=== PATIENT | female | born 1985 | race Caucasian/White ===

== ENCOUNTER 2017-09-05 16:29 | Emergency (ER) | payer OTHER ==
--- NOTE | 2017-09-05 17:38 | ERNOTE ---
ER Female HPI Date of Service: 09/05/17 Stated Complaint: 7-8 WEEKS . BLEEDING Presenting Symptoms: vaginal bleeding Time Seen by Provider: 09/05/17 16:53 Source: patient Exam Limitations: no limitations Immunizations: IMMUNIZATION HX Immunizations Up to Date Yes History of Influenza Vaccine Yes Hx Pneumococcal Vaccination Yes Allergies/Adverse Reactions: Allergies No Known Allergies Allergy (Verified 09/05/17 16:51) Home Medications: HOME MEDICATIONS Metoprolol Tartrate 50 mg PO DAILY 09/05/17 [Last Taken Unknown] - History of Present Illness Narrative: Pt. comes in with c/o vaginal bleeding since 1000 this morning. Pt. states that she should have gotten her period a week ago and had her last period on July 29 and states that it was light for her. Pt. denies any abd pain, NVD , fever, recent illness or injury. Pt. does not know what her blood type is and states that Dr Puckett told her that she would see her once but that she would need a perinatologist due to a hx of multiple pregnancies, abortions, and community worker sx. Pt. denies any alleviating or aggravating factors or prehospital treatment. Review of Systems - Review of Systems Constitutional: Present: no symptoms reported. Absent: recent illness, fever, chills, weakness, fatigue, malaise EYE: Present: no symptoms reported ENT: Present: no symptoms reported Respiratory: Present: no symptoms reported. Absent: shortness of breath, cough , wheezing Cardiology: Present: no symptoms reported. Absent: chest pain, palpitations, edema Gastrointestinal/Abdominal: Present: no symptoms reported. Absent: nausea, vomiting, diarrhea, abdominal pain Genitourinary: Present: other - vaginal bleeding Musculoskeletal: Present: no symptoms reported. Absent: back pain, joint pain Skin: Present: no symptoms reported. Absent: rash, dryness, lesions, change in color Neurological: Present: no symptoms reported. Absent: headache, dizziness/light- headedness, weakness, numbness, tingling Endocrine: Present: no symptoms reported Hematologic/Lymphatic: Present: no symptoms reported All Other Systems: All systems neg except as marked - Patient's Past Medical History Patient History - Medical: Anxiety, Bipolar, Chronic Pain, Depression Patient History - Cardiac/Respiratory: Hypertension Patient History - Cancer: No Hx of Cancer Patient History - Surgical Procedures: Other Patient History - Other: None LMP (females 10-50): - Social History Living Situations: home Psych History: Hx of Anxiety, Hx of Depression, Hx of Bipolar Disorder Smoking Status: Current every day smoker Alcohol Use: heavy Drug Use: none - Immunizations Immunizations Up to Date: Yes Hx Pneumococcal Vaccination: Yes History of Influenza Vaccine: Yes Physical Exam - Physical Exam General Appearance: Present: wd/wn, alert, no apparent distress Head Exam: Present: normal inspection, no evidence of injury Eye Exam: Normal inspection: bilateral Respiratory: Present: no respiratory distress, normal breath sounds, no accessory muscle use, chest nontender, lungs clear Cardiovascular/Chest: Present: regular rate, rhythm, no murmur, normal peripheral pulses Gastrointestinal/Abdominal: Present: normal bowel sounds, nontender, nondistended, soft, no organomegaly. Absent: guarding, rebound, McBurney sign, Obturator sign Pelvic Exam: Present: active bleeding - scant Back Exam: Present: normal inspection, normal range of motion, no CVA tenderness , no vertebral tenderness. Absent: decreased range of motion, muscle spasm Extremity Exam: Present: normal inspection Neurological Exam: Present: alert, oriented, normal mood/affect, no motor/ sensory deficits Skin Exam: Present: normal color, warm/dry. Absent: pallor, skin rash ED Progress - Date and Time Seen: Date and Time: 09/05/17 19:[address] Singletary and he would like pt. to keep appointment with Dr Puckett and have HCG rechecked on Sunday and return to ER if she develops severe pain or rebound tenderness. - Results and Orders Patient's Lab Results:: I have reviewed the patient's lab results. - Vital Signs Patient's Vital Signs:: I have reviewed the patient's vital signs. Vital Signs: Vital Signs 09/05/17 16:35 Temperature 37.0 C Pulse Rate 108 H Respiratory 16 Rate Blood Pressure 134/94 O2 Sat by Pulse 100 Oximetry - CT/Ultrasound CT/Ultrasound Narrative: US OB Limited 1st Trimester, US Transvaginal OB Transabdominal first trimester OB ultrasound: Clinical gestational age: Unknown/not provided Estimated date delivery/confinement based on clinical gestational age: Unknown/ not provided Uterus: Anteverted. 8.4 cm longitudinal by 4.8 cm AP by 6.0 cm transverse. There is an anechoic structure within the uterus suggestive of a gestational sac with internal structures difficult to visualize due to transabdominal technique. Therefore transvaginal first trimester OB ultrasound images were obtained. Right ovary: 2.3 x 2.0 x 2.6 cm Left ovary: 2.7 x 3.6 x 2.2 cm Transvaginal first trimester OB ultrasound: Uterus cervix is closed. Uterus: 8.0 cm longitudinal by 4.3 cm AP by 5.7 cm transverse. Gestational sac: 1 visualized, somewhat low in position within the low fundus/ high uterine body, surrounded by thick decidual reaction, measuring 6.5 mm x 6.0 mm x 7.3 mm, Mean Sac Diameter of 6.6 mm, which is out of range for date calculation. Yolk sac: Visualized. Measures 1.8 x 1.5 mm pole: Not visualized. Adjacent to the gestational sac there is a lenticular hypoechoic fluid measuring 1.6 x 0.8 x 1.8 cm , suggestive of potential subchorionic hemorrhage. Right ovary: 2.5 x 1.6 x 1.9 cm. No dominant cystic or solid mass. Left ovary: 2.8 x 2.1 x 2.3 cm. There is a hypoechoic 1.5 x 1.1 x 1.2 cm lesion , with peripheral color flow which is likely a corpus luteal cyst. Mild free fluid in the pelvis, with low level internal echoes which is suggestive of either pus or blood. IMPRESSION: 1. Single intrauterine of uncertain viability. Correlate with beta- hCG measurements. Consider short-term sonographic followup in 1-2 weeks. 2. Small amount of complex fluid in the pelvis suggestive of either pus or blood. 3. Left ovarian corpus luteal cyst. 4. Small subchorionic hemorrhage adjacent to the gestational sac as above. 5. Additional comments and measurements are as above. Electronically signed by Dax Manzo M.D.. - Progress/Reassessment Chief Complaint: OB Screening Departure Clinical Impression: Threatened - Departure Disposition: Home self-care Condition: Good Instructions: Vaginal Bleeding During , First Trimester, [id number] , Threatened Miscarriage, [id number] Additional Instructions: No intercourse or nothing in the vagina and follow up for a repeat lab here on Sunday and keep appointment with Dr Puckett next sunday. If you develop fever, weakness, severe bleeding or cramping please contact OB clinic or return to ER. Referrals: Ashley Puckett DO [Primary Care Provider] -
[2017-09-05 18:19] LABS: Hematocrit 40.5 % (37.0-47.0); Hemoglobin 14.3 gm/dL (12.5-16.0); Mean Cell Volume 89.4 fl (78-100); Mean Corpuscular Hemoglobin 31.6 pg (27-31); Mean Corpuscular Hgb Conc 35.3 g/dl (32-36); Mean Platelet Volume 9.1 fl (6.0-9.5); Neutrophil # 5.9 K/mm3 (1.3-6.0); Neutrophil % 72.2 % (42-75.0); Platelet Count 257 K/mm3 (150-450); Red Blood Count 4.53 M/mm3 (4.2-5.4); Red Cell Distribution Width 12.5 % (11.5-14.0); White Blood Count 8.1 K/mm3 (4.0-10.5)
[2017-09-05 19:57] VITALS: BP 137/68
== END 2017-09-05 20:22 | disposition home or self-care (01) ==
LOC: ER 16:29
DX: O20.0 Threatened abortion (principal); Z3A.00 Weeks of gestation of pregnancy not specified; F17.200 Nicotine dependence, unspecified, uncomplicated; I10 Essential (primary) hypertension